=== PATIENT | female | born 1970 | race Caucasian/White ===

== ENCOUNTER 2018-10-02 05:08 | Day surgery (SDC) | payer OTHER ==
[~2018-10-02] VITALS: Ht 157.5 cm; Wt 99.8 kg
[2018-10-02 05:55] LABS: HEMATOCRIT 42.3 % (36.0-48.0); HEMOGLOBIN 14.4 g/dL (12-16); MEAN PLATELET VOLUME 9.8 fL (7.4-10.4); RBC 4.65 10x6/uL (4.00-5.40); RDW 13.6 % (11.5-14.5); WBC 6.5 10x3/uL (4.8-10.8)
[2018-10-02] MEDS ORDERED: LEVO-T88 MCG PO (06:20)
[2018-10-02] MEDS ORDERED: SKELAXIN800 MG PO (06:21)
[2018-10-02] MEDS ORDERED: PROZAC10 MG PO (06:21)
[2018-10-02] MEDS ORDERED: BYSTOLIC20 MG PO (06:22)
[2018-10-02 06:43] VITALS: BP 191/99; Ht 157.5 cm; Wt 99.8 kg
[2018-10-02 06:58] LABS: HCG URINE NEGATIVE (NEGATIVE)
[2018-10-02] MEDS ORDERED: HYDROCODON-ACE1 EA10 PO (07:52)
[2018-10-02] MEDS ORDERED: DURICEF500 MG PO (07:53)
--- NOTE | 2018-10-02 08:45 | NUR ---
[address] [place] DIET SERVED.
--- NOTE | 2018-10-02 13:29 | OP ---
PATIENT NAME: BRITT SUERO MEDICAL RECORD: [id number] :68 LOCATION:[facility] ADMISSION DATE: SURGEON: RICCARDO WHITE DO DATE OF OPERATION: 10/02/2018 PROCEDURE PERFORMED: Left endoscopic carpal tunnel release. PREOPERATIVE DIAGNOSIS: Left carpal tunnel syndrome. POSTOPERATIVE DIAGNOSIS: Left carpal tunnel syndrome. INDICATIONS: Ms. Suero is a 48-year-old female, who had left hand numbness for quite some time, wakes her up at night and anytime she does anything. She is tired of dealing with the pain. Got a nerve conduction study ordered by her primary care physician, Dr. Whalen, done by Dr. Payan, which showed a distal motor latency of 7.6 well over the limit of 4.3. She had severe carpal tunnel syndrome of the test. I informed her of the risks and benefits of the procedure including infection, bleeding, damage to nerves and vessels, continued pain, and damage to the median nerve. She was okay with those risks and signed the consent. SURGEON: Riccardo White DO DESCRIPTION OF PROCEDURE: The patient was taken to the operative suite, laid in supine position, given general anesthetic and LMA was placed. Given 2 grams of Ancef preoperatively. The left upper extremity was then prepped and draped in sterile fashion. Time-out was performed, everyone was in agreement with the correct side, site, patient, and procedure. The incision was then marked out over the wrist crease and then the Esmarch was used to exsanguinate the left upper extremity. Tourniquet was inflated to 250 mmHg, was up for 7 minutes. Incision was then made over the marked incision of the wrist crease with a 15 blade scalpel just through the skin. Blunt dissection was then made down with Rominanelldara to the carpal tunnel. The forearm fascia was then released from distal to proximal approximately a centimeter. Then, the carpal tunnel was entered with the dilators and then a sheath. The camera was then entered into the sheath and a probe and rasp were then used through the sheath and the blade was brought in and elevated and the transverse carpal ligament was divided and fat herniated down into the carpal tunnel ensuring good release. This was all then removed and then with direct loupe visualization and Crispin, the transverse carpal ligament was inspected and no fibers were seen to be remain intact. Tourniquet was then let down. The site was injected with 10 mL of 0.25% Marcaine with epinephrine and then the skin was closed with 5-0 Monocryl in an inverted interrupted fashion. Steri-Strips, Adaptic, 4 x 4's, Kerlix, and Coban were lightly wrapped on the hand. The patient was awakened and taken to recovery in stable condition. BLOOD LOSS: Minimal. COMPLICATIONS: None. TRANSINT:[id number] Voice Confirmation ID: [id number] DOCUMENT ID: [id number] OPERATIVE REPORT [id number] BRITT SUERO,RICCARDO Hernandez DO at 1329 CC: [id number] DICTATION DATE: 10/02/18 0756 LISW: 10/02/18 0842 [facility] 10/02/18 [address] [place] [address]
== END 2018-10-02 09:35 | disposition home or self-care (01) ==
LOC: D.OPS 05:08 → D.PAN 07:00 → D.OPS 07:00
PROVIDERS: Anesthesiology; ATTEND Orthopaedic Surgery
DX: G56.02 Carpal tunnel syndrome, left upper limb (principal); Z01.812 Encounter for preprocedural laboratory examination

== ENCOUNTER → 2019-01-30 08:09 | Outpatient (CLI) | payer OTHER ==
[2018-10-02 06:43] VITALS: BMI 40.3
[~2019-01-30 08:09] MED LIST: BYSTOLIC20 MG PO; DURICEF500 MG PO; HYDROCODON-ACE1 EA10 PO; LEVO-T100 MCG PO; PROZAC10 MG PO; SKELAXIN800 MG PO
--- NOTE | 2019-02-03 11:10 | ST ---
PATIENT:BRITT MCKEON MEDICAL RECORD: [id number] SEX: F LOCATION:[facility] ORDER #: ADMISSION DATE: 01/30/19 AGE OF PATIENT: 48 REFERRING PHYSICIAN: INTERPRETING PHYSICIAN: JOCELYNE CANSECO MD DATE OF SERVICE: 01/30/2019 NUCLEAR STRESS TEST INDICATION: Angina, abnormal ECG, hypertension. She was exercised on standard Lexiscan protocol with 31 mCi of sestamibi injected at peak stress, 10 mCi used previously for rest images. FINDINGS: Gated SPECT reveals preserved ejection fraction at 56% with decreased thickening and brightening throughout the inferior segments. SPECT imaging Cardiolite was used as myocardial perfusion agent. There was fixed perfusion defect inferoapically compatible with previous inferoapical myocardial infarction; however, there are reversible changes anteriorly which includes basal, mid, apical anterior segments. The degree of reversibility is moderate. The amount of myocardial involved is large between the 2 defects. OVERALL IMPRESSION: This is a markedly abnormal high risk nuclear stress test, fixed perfusion defect inferiorly and apically. Reversible ischemia anteriorly suggestive of multivessel coronary artery disease. TRANSINT:[id number] Voice Confirmation ID: [id number] DOCUMENT ID: [id number] JOCELYNE CANSECO MD at 1110 CC: ELSY GARCIA DO [id number] DICTATION DATE: 01/31/19 1012 DRYWALL APPLICATION SUPERVISOR: 02/01/19 0207 DEP CLI 01/30/19 [facility] [address] [place] [address]
== END | disposition home or self-care (01) ==
LOC: D.HCCARDIO 08:09
PROVIDERS: ATTEND Internal Medicine Interventional Cardiology
DX: I20.9 Angina pectoris, unspecified (principal)

== ENCOUNTER 2019-02-06 14:05 | Outpatient (CLI) | payer OTHER ==
[~2019-02-06] VITALS: Ht 157.5 cm; Wt 100.0 kg
--- NOTE | ~2019-02-06 | HEMODYNAMI ---
PATIENT:BRITT MCKEON MEDICAL RECORD: [id number] : 68 LOCATION:[facility] ADMISSION DATE: 02/06/19 Generatedon:02/06/201915:49 Patient name: BRITT MCKEON Patient #: [id number] SSN: [id number] : 1970 Date of study: 02/06/2019 Page: Of Hemodynamic Procedure Report Patient Data Patient Demographics Procedure consent was obtained First Name: BRITT Gender: Female Last Name: PIO : 1970 Middle Initial: A Age: 48 year(s) Patient #: [id number] Race: SSN: [id number] Additional ID: [id number] Contact details Address: [address] [place] [address] State: [place] City: [place] Zip code: [address] Past Medical History Allergies: No known allergies Admission Admission Data Admission Date: 02/06/2019 Admission Time: 14:05 Arrival Date: 02/06/2019 Arrival Time: 0:00 Admit Source: Emergency Insurance Payor: Private department health insurance [facility] #: [id number] Height (in.): 61.81 BSA: 1.99 (m2) Height (cm.): 157 BMI: 40.57 (kg/m2) Weight (lbs.): 220.46 Weight (kg.): 100 Lab Results Lab Result Date: 02/06/2019 Lab Result Time: 1:00 Biochemistry Name Units Result Min Max BUN mg/dl 23 --(----)-* 7 18 CK-MB ng/ml 0.8 --(*---)-- 0 3.6 Creatinine mg/dl 1.1 --(--*-)-- 0.6 1.3 eGFR ml/min 56 *-(----)-- 90 120 NONAFRICAN Troponin I ng/ml 0.017 --(-*--)-- 0 0.06 CBC Name Units Result Min Max Hemoglobin g/dl 13.8 --(*---)-- 13.5 17.5 Procedure Procedure Types Cath Procedure Diagnostic Procedure [facility] w/Coronaries Procedure Description Procedure Date Procedure Date: 02/06/2019 Procedure Start Time: 15:36 Procedure End Time: 15:47 Procedure Staff Name Function Sergey Sawyer MD Performing Physician Mila Sanchez RT Monitor Karen Velásquez RT Monitor Teresita Canas RN Nurse Theresa Marcelo RT Scrub Indication Chest pain Procedure Data Cath Procedure Fluoroscopy Diagnostic fluoroscopy Total fluoroscopy Time: 1.6 time: 1.6 min min Diagnostic fluoroscopy Total fluoroscopy dose: 277 dose: 277 mGy mGy Contrast Material Contrast Material Type Amount (ml) Isovue 300 51 Entry Location Entry Primary Successful Side Size Upsize Upsize Entry Closure Frausto ccessful Closure Location (Fr) 1 (Fr) 2 (Fr) Remarks Device Remarks Radial Right 6 Fr Mechanical artery Short Compression Estimated blood loss: 5 ml Diagnostic catheters Device Type Used For End Catheter Placement DIAGNOSTIC [place] 110cm 5 Procedure Fr catheter ([id number]) Procedure Complications No complications Procedure Medications Medication Administration Route Dosage 0.9% NaCl I.V. 100 ml/hr Oxygen etCO2 Nasal cannula 2 l/min Lidocaine 2% added to field 20 Heparin Flush Bag added to field 2 bags (1000units/500ml NS) Radial Cocktail added to field 1 syringe (Verapamil 2mg/Nitro 400mcg/Heparin 1500units) Versed I.V. 2 mg Fentanyl I.V. 100 mcg Versed I.V. 2 mg Lopressor I.V. 5 mg Benadryl 50 mg Hemodynamics Rest BSA: 1.99 (m2) HGB: 13.8 (g/dl) O2 Consumption: Estimated: 213.99 (ml/min) O2 Co nsumption indexed: Estimated:107.53 (ml/min/m) Heart Rate: 95 (bpm) Snapshots Pre Cath Intra NCS Post Cath Vital Signs Time Heart Resp SPO2 etCO2 NIBP (mmHg) Rhythm Pain Sedation Rate (ipm) (%) (mmHg) Status Level (bpm) 15:23:39 90 16 100 37 167/102(114) NSR 0 (11) 10(A) , No pain 15:28:10 90 18 99 36.7 154/78(110) NSR 0 (11) 10(A) , No pain 15:32:36 88 16 100 32.9 138/71(107) NSR 0 (11) 10(A) , No pain 15:36:52 81 18 98 37.4 125/77(106) NSR 0 (11) 10(A) , No pain 15:41:14 80 27 98 37.4 109/57(79) NSR 0 (11) 10(A) , No pain Medications Time Medication Route Dose Verified Delivered Reason Notes E ffectiveness by by 15:22:04 0.9% NaCl I.V. 100 Sergey Teresita used for ml/hr Silverio Canas director strategy 15:22:09 Benadryl 50 mg Sergey Teresita used for Silverio Canas director strategy 15:22:10 Oxygen etCO2 2 l/min Sergey Teresita used for Nasal Silverio Canas procedure cannula RN 15:22:16 Lidocaine 2% added 20ml Sergey Sergey for local to vial Silverio Sawyer MD anesthetic field 15:22:20 Heparin Flush added 2 bags Sergey Sergey used for Bag to Silverio Sawyer MD procedure (1000units/500ml field NS) 15:22:25 Radial Cocktail added 1 Sergey Sergey used for (Verapamil to syringe Silverio Sawyer MD procedure 2mg/Nitro field 400mcg/Heparin 1500units) 15:34:04 Fentanyl I.V. 100 mcg Sergey Teresita for Silverio Canas sedation RN 15:34:52 Versed I.V. 2 mg Sergey Teresita for Silverio Canas sedation RN 15:39:42 Versed I.V. 2 mg Sergey Teresita for Silverio Canas sedation RN 15:39:53 Lopressor I.V. 5 mg Sergey Teresita Per Silverio Canas physician legal financial specialist Log Time Note 14:56:28 Teresita Canas RN sent for patient. Start room use. 14:56:29 Time tracking: Regular hours (M-F 7:00 - 5:00) 14:56:34 Plan of Care:Hemodynamics will remain stable., Cardiac rhythm will remain stable., Comfort level will be maintained., Respiratory function will remain adequate., Patient/ family verbilizes understanding of procedure., Procedure tolerated without complication., Recovers from procedure without complications.. 15:04:37 Informed consent obtained and on chart 15:05:21 Arrival Date: 02/06/2019 12:00:00 AM 15:06:00 Insurance Payor : Private health insurance 15:06:08 Patient Height : 61.81 inches 15:06:15 Patient Weight : 220.46 lbs 15:06:35 Lab Result : Hemoglobin 13.8 g/dl 15:06:54 Indication : Chest pain 15:07:08 Admit Source: Emergency department 15:07:18 Procedure Status Urgent Heart Cath (IP). 15:10:51 Snore? Yes 15:10:53 Sleep apnea? Yes 15:11:15 Deviated septum? No 15:11:18 Opens mouth fully? Yes 15:11:19 Sticks out tongue? Yes 15:12:16 Airway obstruction? Yes COPD, SLEEP APNEA 15:12:42 H&P Date Dictated: 02/06/2019 ER History on chart.. 15:12:47 Pre-procedure instructions explained to patient. 15:12:48 Pre-op teaching completed and patient verbalized understanding. 15:13:04 ACC Patient presents with Stable Angina CCS Anginal Class 3--Marked limitation of physical activity, angina occurs with ordinary activity.. 15:16:28 Patient received from ED to CCL 1 Alert and oriented. Tansferred to table in Supine position. 15:16:29 Warm blankets applied, and qamar hugger turned on for patient comfort. 15:16:29 Correct patient and procedure confirmed by team. 15:16:30 ECG and BP/O2 sat monitors applied to patient. 15:22:04 0.9% NaCl 100 ml/hr I.V. was administered by Teresita Canas RN; used for procedure; Verbal order read back and verified. 15:22:09 Benadryl 50 mg was administered by Teresita Canas RN; used for procedure ; Verbal order read back and verified. 15:22:10 Oxygen 2 l/min etCO2 Nasal cannula was administered by Teresita Canas RN ; used for procedure; Verbal order read back and verified. 15:22:12 ACCPatient has been prescribed/administered the following anti-anginal medication within the last 2 weeks: None 15:22:16 Lidocaine 2% 20ml vial added to field was administered by Sergey Sawyer MD; for local anesthetic; Verbal order read back and verified. 15:22:18 Vital chart was started 15:22:19 Baseline sample Acquired. 15:22:20 Heparin Flush Bag (1000units/500ml NS) 2 bags added to field was administered by Sergey Sawyer MD; used for procedure; Verbal order read back and verified. 15:22:25 Radial Cocktail (Verapamil 2mg/Nitro 400mcg/Heparin 1500units) 1 syring e added to field was administered by Sergey Sawyer MD; used for procedure; Verbal order read back and verified. 15::33 Rhythm: sinus rhythm 15::36 Full Disclosure recording started 15::38 - 15::48 Family in waiting room. 15:23:34 Patient NPO since Lunch. 15::43 Patient allergic to No known allergies 15::48 Is the patient allergic to Iodine/contrast media? No. 15::53 Was the patient premedicated? Yes 15:23:57 Is patient on blood thinner?No 15:24:02 Patient diabetic? No. 15:24:23 Patient not . Patient STATES MENOPAUSE. 15::52 ----Pre-sedation anethsthesia assessment.---- 15:24:58 Previous problem with sedation/anesthesia? No ? 15:27:01 Pre procedure: right dorsailis pedis pulse 2+ Normal; easily identifiable; not easily obliterated 15:27:06 Pre procedure: left dorsailis pedis pulse 2+ Normal; easily identifiable; not easily obliterated 15:27:10 Modified Pio's test Ulnar < 7 seconds 15:27:22 Patient pain scale 0/10 ?. 15:27:37 IV patent on arrival in left antecubital with 0.9% NaCl at [facility]. 15:28:15 Lab results pending. 15:28:21 Risk of Mortality: 0.3 15:28:26 Risk of blood transfusion: 0.1 15:28:48 Risk of TEODORO: UNKNOWN DUE TO CREATINE STATUS 15:28:54 Right Radial & Right Groin area was prepped with chlora-prep and draped in sterile fashion :: Alarms reviewed by R. N. :: Sharps counted by scrub and verified by R.N. ::37 Lab Result : Troponin T 0.017 ng/ml :: Lab Result : eGFR NONAFRICAN 56 ml/min 15::37 Lab Result : CK-MB 0.8 ng/ml 15:: Lab Result : BUN 23 mg/dl ::37 Lab Result : Creatinine 1.1 mg/dl :: Lab Result : Hemoglobin 13.8 g/dl 15:33:32 Physician arrived 15::33 --------ALL STOP TIME OUT------ :33:33 Final Timeout: patient, procedure, and site verified with staff and physician. All members of the team are in agreement. 15:33:36 Right Radial & Right Groin site verified by team. 15:33:43 Fire Safety Assessment: A--An alcohol-based skin anteseptic being used preoperatively., C--Open oxygen or nitrous oxide is being used., D--An ESU, laser, or fiber-optic light is being used. 15:33:47 Physical assessment completed. ASA score P 2 - A patient with mild systemic disease as per Sergey Sawyer MD. 15:33:53 3a) 45-59 Moderately reduced kidney function. 15:34:00 Maximum allowable contrast dose (3.7 X eGFR X 0.75)155 ml. 15:34:04 Fentanyl 100 mcg I.V. was administered by Teresita Canas RN; for sedation; Verbal order read back and verified. 15:34:06 Sedation plan: IV Moderate Sedation Medication:Versed, Fentanyl 15:34:13 Use device set Radial Dx or PCI 15:34:15 ACIST Syringe (05723) opened to sterile field. 15:34:15 Medline Cath Pack ([id number]) opened to sterile field. 15:34:16 Bag Decanter () opened to sterile field. 15:34:17 ACIST Hand Control (12955) opened to sterile field. 15:34:17 ACIST Manifold (23883) opened to sterile field. 15:34:18 Tegaderm 4 x 4 (1626W) opened to sterile field. 15:34:19 MBrace Wrist Support ([id number]) opened to sterile field. 15:34:21 EMERALD Guide Wire (559-532) opened to sterile field. 15:34:22 SHEATH 6FR RAIN (9194522) opened to sterile field. 15:34:52 Versed 2 mg I.V. was administered by Teresita Canas RN; for sedation; Verbal order read back and verified. 15:35:17 Zero performed for pressure channel P1 15:35:43 Zero performed for pressure channel P1 15:35:55 Procedure started. 15:36:04 Local anesthetic to right radial artery with Lidocaine 2% by Sergey Sawyer MD.INITIAL ACCESS ONLY 15:36:29 A 6 Fr Short sheath was inserted into the Right Radial artery 15:36:57 A DIAGNOSTIC [place] 110cm 5 Fr catheter (926786) was advanced over the wire and used for Procedure. 15:37:28 LV gram done using HOANG 15:38:15 EF : 70 % 15:38:19 Injector settings: Ml/sec: 5, Volume: 15, 15:38:33 LCA angiography performed. 15:38:50 Injector settings: Ml/sec: 3, Volume: 5, 15:39:40 ACCDominant side:Left 15:39:42 Versed 2 mg I.V. was administered by Teresita Canas RN; for sedation; Verbal order read back and verified. 15:39:43 RCA angiography performed. 15:39:53 Lopressor 5 mg I.V. was administered by Teresita Canas RN; Per physician ; Verbal order read back and verified. 15:39:57 Injector settings: Ml/sec: 3, Volume: 5, 15:40:07 Catheter removed. 15:40:17 TR BAND Standard ([id number]) opened to sterile field. 15:40:24 Procedure ended.(Physican Out) 15:40:37 Sheath removed intact; hemostasis achieved with Mechanical Compression to the Right Radial artery. 15:41:06 Fluoroscopy time 01.60 minutes. 15:41:36 Fluoroscopy dose: 277 mGy 15:41:36 Flurop Dose total: 277 15:41:48 Dose Area Product 91904 mGy/cm. 15:41:57 Contrast amount:Isovue 300 51ml. 15:42:00 Maximum allowable dose exceeded? No. 15:42:02 Sharps counted by scrub and verified by R.N. 15:42:06 Mcdonough band inflated with 7cc of air. 15:42:09 Insertion/operative site no bleeding no hematoma. 15:42:19 Post right radial artery:stable 15:42:24 Post Procedure Pulses reassessed and unchanged 15:42:34 Post-procedure physical assessment completed. ASA score P 2 - A patient with mild systemic disease as per Sergey Sawyer MD. 15:42:43 Post procedure rhythm: unchanged. 15:42:47 Estimated blood loss: 5 ml 15:42:51 Post procedure instruction explained to patient.Patient verbalizes understanding. 15:42:52 Patient needs reinforcement of post procedure teaching. 15:43:18 Procedure and supply charges have been captured, reviewed, submitted an d are correct. 15:43:54 Procedure Complication : No complications 15:43:58 Vital chart was stopped 15:44:02 [facility] Findings: mild to moderate CAD (<70%) 15:44:08 Operative report dictated upon procedure completion. 15:44:09 See physician's report for complete and final results. 15:46:13 Report given to Outpatients. 15:46:20 Patient transfered to Outpatients with Stretcher. 15:47:01 Procedure ended. 15:47:01 Full Disclosure recording stopped 15:47:05 End room use (Document Last) Device Usage Item Name Manufacture Quantity Catalog Hospital Part Current Minima l Lot# / Number Charge Number Stock Stock Serial# Code ACIST Acist 1 92688 [id number] [id number] 209384 20 Syringe Medical (78171) Systems Inc Medline Medline 1 [id number] 573534 36647 248205 5 Cath Pack ([id number]) Bag Microtek 1 373923 23051 347488 5 Decanter Medical Inc. () ACIST Hand Acist 1 20773 021104 521308 376326 5 Control Medical (32065) Systems Inc ACIST Acist 1 05534 214945 203721 378867 5 Manifold Medical (33422) Systems Inc Tegaderm 4 3M 1 1626W 918977 478369 120496 5 x 4 (1626W) MBrace Advanced 1 140-0250-00 311945 20995 558661 5 Wrist Vascular Support Dynamics ([id number]) EMERALD Cardinal 1 179-309 738400 445596 385077 5 Guide Wire [facility] (502455) SHEATH 6FR Cardinal 1 [id number] 035532 7942383 827101 5 [facility] (1117342) DIAGNOSTIC Terumo 1 40-9673 748827 576516 297449 5 [place] 110cm 5 Fr catheter (758071) TR BAND Terumo 1 DRG33-XAU 912410 499574 566766 40 Standard ([id number]) Signature Audit Mckenna Stage Time Signature Unsigned Intra-Procedure 02/06/2019 Karen 3:47:40 PM Didier RT(R) (CV) Intra-Procedure 02/06/2019 Teresita Canas 3:48:33 PM RN Intra-Procedure 02/06/2019 Sergey Sawyer 3:49:08 PM [address] [place] [address]
[2019-02-06 14:41] LABS: BASOPHILS 0.2 % (0-2); EOSINOPHILS 0.9 % (0-7); HEMATOCRIT 41.8 % (36.0-48.0); HEMOGLOBIN 13.8 g/dL (12-16); IMMATURE GRANULOCYTES 0.1 % (0-5); MCH 30.7 pg (26.0-34.0); MCV 93.1 fL (80.0-100.0); MEAN PLATELET VOLUME 9.8 fL (7.4-10.4); MONOCYTES 4.6 % (2-11); NEUTROPHILS 57.2 % (40-80); PLATELET COUNT 268 10x3/uL (130-400); RBC 4.49 10x6/uL (4.00-5.40); RDW 13.6 % (11.5-14.5)
[2019-02-06 14:44] VITALS: Ht 157.5 cm; Wt 100.0 kg
[2019-02-06 14:59] LABS: ALBUMIN 3.7 g/dL (3.4-5.0); ALKALINE PHOSPHATASE 79 U/L (46-116); ALT (SGPT) 24 U/L (10-68); CALC OSMOLALITY 283 mosm/kg (275-300); CALCIUM 8.6 mg/dL (8.5-10.1); CARBON DIOXIDE 30.1 mmol/L (21.0-32.0); CHLORIDE - SERUM 102 mmol/L (98-107); CREATININE - SERUM 1.1 mg/dL (0.6-1.3); GLUCOSE 109 mg/dL (74-106); POTASSIUM - SERUM 3.7 mmol/L (3.5-5.1); PROTEIN - SERUM 7.5 g/dL (6.4-8.2); SODIUM 140 mmol/L (136-145); UREA NITROGEN 23 mg/dL (7-18); eGFR NON AFRICAN AMERICAN 56 mL/min (90-120)
[2019-02-06 15:10] LABS: CKMB 0.8 U/L (0.0-3.6); CREATINE KINASE 109 UL (21-215)
[2019-02-06 15:11] VITALS: BP 132/57
[2019-02-06 15:12] LABS: TROPONIN-I < 0.017 ng/mL (0.000-0.060)
[2019-02-06 15:57] LABS: INR 0.94 (0.85-1.17); PROTIME 12.1 SECONDS (11.6-15.0)
[2019-02-06 17:12] LABS: APTT 29.2 SECONDS (22.8-39.4)
--- NOTE | 2019-02-06 18:05 | NUR ---
LEFT AC PIV DC'D WITH TIP INTACT. DISCHARGE INSTRUCTIONS REVIEWED WITH PATIENT AND SISTER, DISCHARGED HOME VIA WHEELCHAIR TO PRIVATE VEHICLE WITH SPOUSE
--- NOTE | 2019-02-07 13:29 | OP ---
PATIENT NAME: BRITT MCKEON MEDICAL RECORD: [id number] :68 LOCATION:[facility] ADMISSION DATE: SURGEON: JOCELYNE CANSECO MD DATE OF OPERATION: 02/06/2019 PROCEDURES: 1. Left heart catheterization. 2. Selective coronary angiography. 3. Left ventriculogram. INDICATION: Chest pain compatible with angina and abnormal nuclear stress test, obesity. PROCEDURE IN DETAIL: After informed consent was obtained and after a detailed description of risks, benefits as well as alternative therapies, the patient elected to proceed with angiogram and heart catheterization. The right radial area was prepped and draped in normal sterile fashion. Right radial artery was cannulated via modified Seldinger technique with placement of 5-Zimbabwean sheath. All catheters exchanged through this sheath. FINDINGS: Left ventriculogram was performed in standard 30-degree HOANG view, reveals good cardiac wall motion, ejection fraction estimated 70%. SELECTIVE CORONARY ANGIOGRAPHY: Left main, left anterior descending, left circumflex, right coronary artery are all smooth-walled vessels with no angiographic evidence of coronary artery disease. OVERALL IMPRESSION: 1. No angiographic evidence of coronary artery disease. 2. Normal left heart pressures. 3. Normal left ventricular systolic function. Chest pain is noncardiac in etiology. No further cardiac workup needs to be ascertained. TRANSINT:[id number] Voice Confirmation ID: [id number] DOCUMENT ID: [id number] JOCELYNE CANSECO MD at 1329 CC: [id number] DICTATION DATE: 02/06/19 1542 SEAFOOD TEAM MEMBER: 02/06/19 2249 DEP CLI 02/06/19 [address] [address] [id number]
--- NOTE | 2019-02-07 13:29 | CN ---
PATIENT NAME:BRITT MCKEON MEDICAL RECORD: [id number] : 68 LOCATION:[facility] ADMIT DATE: ACCOUNT: [id number] CONSULTING PHYSICIAN: JOCELYNE CANSECO MD REFERRING PHYSICIAN: JOCELYNE CANSECO MD DATE OF CONSULTATION: 02/06/2019 DIAGNOSES: 1. Chest pain compatible with angina. 2. Abnormal nuclear stress test. 3. Hypothyroidism. 4. Obesity. 5. Family history of coronary artery disease. HISTORY OF PRESENT ILLNESS: Mrs. Mckeon presents with continued chest pain. She was seen as an outpatient. Her nuclear stress test, which was high risk abnormal. She was set for cardiac catheterization this coming ; however, the chest pressure continued in worsening fashion and she presents to the Emergency Room. Her EKG is with no acute ST-T abnormalities. She does continue to have the episodes of chest pressure. PHYSICAL EXAMINATION: CONSTITUTIONAL/GENERAL APPEARANCE: Well nourished, well developed, appears stated age. EYES: Lids and conjunctivae noninjected. No discharge. No pallor. ENT: Lips within normal limit. No cyanosis. No pallor. NECK: Carotid arteries, bilateral normal upstroke. No bruits. No thrills. No jugular venous pressure or distention. CERVICAL LYMPH NODES: Nontender. Nonenlarged. THYROID: Not enlarged. No nodules. CARDIOVASCULAR: Precordial exam, nondisplaced. No heaves or pericardial thrills. Rate and rhythm, regular. Heart sounds, normal S1, normal S2. No S3, no gallop, no rub. Systolic murmur, not heard. Diastolic murmur, not heard. RESPIRATORY: Respiratory effort, unlabored. Normal curvature. No thoracic deformity. No chest wall tenderness. Percussion, resonant. Auscultation, clear. No wheezes, no rales, no rhonchi. ABDOMEN: Soft, nondistended, nontender. No abdominal pain, no vomiting and normal appetite. MUSCULOSKELETAL: No joint tenderness, normal gait, normal tone. SKIN: Warm and dry. OVERALL IMPRESSION: Continued chest pressure with abnormal nuclear stress test. We will proceed with coronary angiography. Further care depends upon findings of the angiography. TRANSINT:[id number] Voice Confirmation ID: [id number] DOCUMENT ID: [id number] CONSULT REPORT [id number] BRITT MCKEON JOCELYNE CANSECO MD at 1329 CC: [id number] DICTATION DATE: 02/06/19 1446 MICROWAVE REMOTE SENSING SCIENTIST: 02/06/19 1624 DEP CLI 02/06/19 [id number] [place] [place] [address]
== END 2019-02-06 18:05 | disposition home or self-care (01) ==
LOC: D.CATH 14:05 → D.ER 14:05 → EDSTATUS 15:15 → D.CATH 18:05
PROVIDERS: Family Medicine; ATTEND Internal Medicine Interventional Cardiology
DX: R07.9 Chest pain, unspecified (principal); R94.30 Abnormal result of cardiovascular function study, unspecified; E03.9 Hypothyroidism, unspecified; E66.9 Obesity, unspecified